=== PATIENT | female | born 1980 | race African-American/Black ===

== ENCOUNTER → 2021-07-03 08:56 | Outpatient (CLI) | payer BC, SELFPAY ==
[2021-07-03 18:18] LABS: SARS-CoV-2 RNA PCR Negative
== END ==
PROVIDERS: PCP Physician Assistant
DX: R68.89 Other general symptoms and signs (principal); Z20.822 Contact with and (suspected) exposure to COVID-19
CPT/HCPCS: C9803; U0003; U0005